=== PATIENT | male | born 1950 | race Caucasian/White ===

== ENCOUNTER 2019-06-13 14:25 | Day surgery (SDC) | payer MEDICARE ==
[~2019-06-13 14:25] MED LIST: Dexamethasone 20 MG/5 ML VIAL ONE; Lidocaine 1% PF 5 ML VIAL ONE; Ondansetron PF 4 MG/2 ML Vial ONE; PROPOFOL 200 MG/20 ML VIAL ONE
[2019-06-13] MEDS ORDERED: Iothalamate Meglumine 60% 50 ML VIAL FS ONE (16:22)
[2019-06-13] MEDS ORDERED: Fentanyl 100 MCG/2 ML VIAL ONE (16:30)
--- NOTE | 2019-06-13 17:14 | HP ---
REQUESTING PHYSICIAN: Dr. Amy Jasso in the emergency department. REASON FOR CONSULTATION: Right ureteral stone and intractable right flank pain. HISTORY OF PRESENT ILLNESS: Mr. Araujo is a 69-year-old male, who presented via EMS transfer from [facility] to the [facility] for a right ureteral stone. The patient developed right flank pain radiating to his right lower quadrant at 5 a.m. this morning. This has been severe. He presented to [facility], where he was diagnosed with a 5 mm distal ureteral stone with moderate hydroureteronephrosis down to the level of the stone. There was also a nonobstructing stone up in the right kidney. The patient received morphine, Toradol, and IV fluids in [place], and his pain was not well controlled. He was therefore transferred to [facility] in [place] for urologic care. Currently, the patient's pain is 5/10. He states that the Toradol seemed to help the most. No nausea or vomiting. No fever or chills. No dysuria. No gross hematuria. He has had stones in the past. He has had three separate lithotripsy procedures in the past. Most recently, he saw Dr. Gunnar Hines in [place]. He has no other complaints. REVIEW OF SYSTEMS: Full 12-point review of systems was performed and is negative other than that mentioned in HPI. PAST MEDICAL HISTORY: Coronary artery disease, status post CABG in 2011, hypertension, hyperlipidemia. PAST SURGICAL HISTORY: Multiple ESWLs, three-vessel CABG, colonoscopy. SOCIAL HISTORY: No alcohol, tobacco, or illicit drugs. FAMILY HISTORY: Noncontributory. ALLERGIES: NO KNOWN DRUG ALLERGIES. MEDICATIONS: 1. Crestor. 2. Cozaar. PHYSICAL EXAMINATION: VITAL SIGNS: Blood pressure 148/75, pulse 69, respirations 18, temperature 98.9, oxygen saturation 95% on room air. GENERAL: He is alert and oriented x3, in no apparent distress. HEENT: Normocephalic and atraumatic. NECK: Supple. No masses or lymphadenopathy. CARDIOVASCULAR: Regular rate and rhythm. PULMONARY: Breathing unlabored. ABDOMEN: Obese, soft, nontender/nondistended. No masses or organomegaly. No suprapubic tenderness to palpation. No CVA tenderness. EXTREMITIES: Normal range of motion. Warm and well perfused. NEUROLOGIC: No focal deficits. LABORATORY DATA: White blood cell count 12.2, hemoglobin 16.0, hematocrit 51.5, platelets 183. Sodium 139, potassium 5.1, chloride 104, bicarb 25, BUN 20, creatinine 1.47. Urinalysis shows only trace blood on the dip, but otherwise is normal. RADIOLOGY DATA: CT of the abdomen and pelvis demonstrates a 5 mm distal right ureteral stone as well as a 2 x 3 mm stone in the lower pole of the right renal calculus. There is no stone on the left side. There is [id number] right hydroureteronephrosis down to the level of the stone and perinephric stranding. ASSESSMENT: A 69-year-old male with right ureteral stone and intractable right flank pain. PLAN: I reviewed the natural history and clinical implications of ureterolithiasis with the patient in detail. I discussed his approximate 75% chance of spontaneous passage of a stone this size. The patient's pain has been poorly controlled. I discussed intervention options with the patient. I explained that given the size of the stone, lithotripsy would likely be required to remove it. I explained that on the weekends at this hospital, there is no laser available and to temporize measures, a ureteral stent can be placed and then he would need to follow up as an outpatient for staged definitive management of this stone likely by ureteroscopy with laser lithotripsy. I explained that we could attempt to remove the stone with a basket. However, if we cannot safely do this without fragmenting it, a stent will be placed and he would require a second procedure. After indications/risks/benefits/alternatives/possible outcomes were discussed with the patient detail, he elects to proceed with right ureteroscopy with laser. After he elected to proceed with right ureteral stent placement, possible right ureteroscopy with basket extraction and all indicated procedures. He can be discharged home after the procedure. Job ID: [id number]
--- NOTE | 2019-06-13 17:32 | RAD ---
Exam: INTRAPROCEDURE FLUOROSCOPY: HISTORY: Right ureteral stent placement Exposure: 33 mGy*cm^2, 1 minute and 17 seconds FINDINGS: Intraoperative fluoroscopic view demonstrates a right ureteral stent, appropriately positioned. There is contrast in the decompressed right intrarenal collecting system IMPRESSION: Intraoperative fluoroscopy as above. Transcribed Date/Time: 06/13/2019 5:57 PM
[2019-06-13] MEDS ORDERED: HYDROcodone/Acetaminophen 5/325 mg Tablet ONE (18:28)
--- NOTE | 2019-06-13 22:33 | OP ---
DATE OF PROCEDURE: 06/13/2019 EVENT STAFF: None. PREPROCEDURE DIAGNOSIS: Right ureteral calculus. POSTPROCEDURE DIAGNOSIS: Right ureteral calculus. PROCEDURES: 1. Right ureteral stent placement, 6-Burmese x 26 cm. 2. Right retrograde ureteral pyelogram. ANESTHESIA: LMA anesthesia. COMPLICATIONS: None. FLUIDS: See Anesthesia record. BLOOD LOSS: Minimal. SPECIMENS: None. POSTPROCEDURE STATUS: Satisfactory. INDICATIONS FOR PROCEDURE: Mr. Araujo is a 69-year-old male with past urologic history significant for urolithiasis. He presented to the [place] [facility] with acute onset of right-sided flank pain, radiating to his right lower quadrant. His pain was poorly controlled. He was transferred to [facility] in [place], [place] for urologic care. The patient was evaluated after indications/risks/benefits/alternatives/possible outcomes discussed in detail. He elected to proceed with right ureteral stent placement and understands that he will likely need a staged procedure for definitive management of this stone likely by ureteroscopy or laser lithotripsy. PROCEDURE SUMMARY: The patient was taken to the operating room, and after successful induction of LMA anesthesia, he was placed in a dorsal lithotomy position. His genitalia were prepped and draped in usual sterile fashion. A time-out was performed, following which a 22-Burmese rigid cystoscope sheath with visual obturator was advanced into the bladder. A 30-degree lens was used to inspect the bladder in its entirety and this was normal. The right ureteral orifice was identified. It was cannulated with a 0.035-inch hydrophilic Glidewire. It was difficult to manipulate beyond the stone within the distal ureter, within the intramural portion of the ureter, but eventually we were able to do so. A 5-Burmese open-ended ureteral catheter was placed alongside this and a retrograde pyelogram was performed to outline the right renal pelvis. The wire was replaced and the open-ended catheter was removed. Over the wire, a 6-Burmese x 26 cm double-J ureteral stent was placed, and upon wire removal, a good curl was achieved proximally within the right renal pelvis and distally within the bladder. The patient's bladder was drained. He tolerated the procedure well, was awoken from anesthesia, and transferred to the PACU in satisfactory condition. Job ID: [id number]
== END 2019-06-13 19:00 | disposition home or self-care (01) ==
LOC: ERS 14:25 → SDC/OP 16:10
PROVIDERS: ATTEND Urology
PROC: 0T768DZ Dilation of Right Ureter with Intraluminal Device, Via Natural or Artificial Opening Endoscopic (ICD-10-PCS; principal; 2019-06-13)
DX: N13.2 Hydronephrosis with renal and ureteral calculous obstruction (principal); I25.10 Atherosclerotic heart disease of native coronary artery without angina pectoris; I10 Essential (primary) hypertension; E78.5 Hyperlipidemia, unspecified; Z95.1 Presence of aortocoronary bypass graft; Z79.899 Other long term (current) drug therapy
CPT/HCPCS: 52332; 74420; C1758; C1769; 96360; J1100; J2001; J2405; J2704; J3010